=== PATIENT | female | born 1940 | race Two or more races ===

== ENCOUNTER 2024-08-07 16:40 | Emergency (ER) | payer MEDICARE, BC, OTHER ==
[~2024-08-07] VITALS: Ht 172.7 cm; Wt 107.0 kg
[2024-08-07 16:56] VITALS: O2SAT 99
[2024-08-07 20:17] LABS: BASOPHILS % 0.4 % (0.0-2.0); EOSINOPHILS % 2.9 % (0.0-5.0); HEMATOCRIT. 34.8 % (36.0-48.0); MEAN CORPUSCULAR HEMOGLOBIN 29.6 pg (28.0-32.0); MEAN CORPUSCULAR HGB CONC 31.7 g/dL (31.0-37.0); MEAN CORPUSCULAR VOLUME 93.5 fL (81.0-99.0); MONOCYTES % 12.3 % (2.0-8.0); NEUTROPHILS % 45.4 % (40.0-76.0); PLATELET 183 x1000/uL (130-400); RED BLOOD CELL COUNT 3.72 mill/uL (4.2-5.4); RED CELL DISTRIBUTION WIDTH 15.2 % (11.6-14.6)
[2024-08-07 20:23] LABS: CHLORIDE 99 mEq/L (98-107); POTASSIUM 4.4 mEq/L (3.5-5.1); SODIUM 131 mEq/L (136-145)
[2024-08-07 20:24] LABS: CALCIUM 9.5 mg/dL (8.7-10.4); CARBON DIOXIDE 23 mEq/L (21-32)
[2024-08-07 20:29] LABS: CREATININE 1.8 mg/dL (0.6-1.0); UREA NITROGEN BLOOD 20 mg/dL (9-23)
[2024-08-07 20:31] LABS: ALANINE AMINOTRANSFERASE 9 IU/L (10-49); ALBUMIN 3.9 g/dL (3.2-4.8); ASPARTATE AMINOTRANSFERASE 15 IU/L (<34); BETA HYDROXYBUTYRATE 0.2 mMol/L (0.0-0.3); BILIRUBIN TOTAL 0.4 mg/dL (0.1-1.0)
[2024-08-07 20:38] LABS: GLUCOSE 476 mg/dL (70-105)
[2024-08-07] MEDS: SODIUM CHLORIDE 0.9% 1,000 ML IV ONE ×2 (21:00→23:22)
[2024-08-07] MEDS: INSULIN LISPRO 100 UNITS/ML SUBCUT NR (21:40)
[2024-08-07] MEDS: INSULIN LISPRO 100 UNITS/ML SUBCUT ONE (23:48)
[2024-08-08] MEDS ORDERED: GLIM4TAB36 MT (01:29)
[2024-08-08] MEDS ORDERED: PIOG30TA70 MT (01:29)
[2024-08-08 01:55] VITALS: BP 123/68; PULSE 80; RESP 20; TEMP 36.55848; O2SAT 100
== END 2024-08-08 01:57 | disposition home or self-care (01) ==
LOC: ER 16:40
DX: E11.65 Type 2 diabetes mellitus with hyperglycemia (principal)
CPT/HCPCS: 99283; 96360; 96361; 80053; 82010; 82962; 85025; 36415; J7030; J1815